=== PATIENT | male | born 2000 | race African-American/Black ===

== ENCOUNTER 2024-08-08 14:49 | Emergency (ER) | payer OTHER, SELFPAY ==
--- NOTE | ~2024-08-08 | XR_ITS ---
CLINICAL HISTORY: pain 3 views left fifth digit Comparison: None Findings: No dislocations. No significant arthritic change. No radiopaque foreign body. Impression: Soft tissue swelling and laceration with a 1 x 3 mm cortical avulsion of the volar cortex of the distal phalanx visualized in the lateral projection. This document has been electronically signed by: Syed Tomlin MD on 08/08/2024 17:04:02
[2024-08-08 14:53] VITALS: BP 148/71; PULSE 74; RESP 16; TEMP 36.6; O2SAT 99; BMI 33.3
--- NOTE | 2024-08-08 14:58 | ED.GENADULT ---
HPI - General Adult General Chief complaint: Extremity Injury, Upper Stated complaint: L Pinky Injury Time Seen by Provider: 08/08/24 18:04 Source: patient Limitations: no limitations History of Present Illness ED Provider: Cecilia Rizzo PA-C HPI narrative: 24-year-old male presents with left hand injury. While at work, patient dropped a piece of equipment on the left hand, injuring the pinky finger. Tetanus not up-to-date. Related Data Previous Rx's ?Medication ?Instructions ?Recorded cephalexin 500 mg capsule 500 mg PO QID #28 caps 08/08/24 oxycodone 5 mg tablet 5 mg PO Q8H PRN pain #9 tabs 08/08/24 Allergies Allergy/AdvReac Type Severity Reaction Status Date / Time No Known Allergies Allergy Verified 08/08/24 14:55 Review of Systems Review of Systems: Yes all other systems are reviewed and are negative Constitutional: Constitutional: Denies fatigue and Denies fever(s) Musculoskeletal: Musculoskeletal: Reports arthralgias and Reports joint swelling Endocrine: Endocrine: Denies fatigue PMFSH Past Medical History Attestation statement: The following information was validated with the patient. Social History Social History Advance Directives: No Advance Directives Information Provided: No Physical Exam ED Vital Signs: Vital Signs - 24 hr 08/08/24 14:53 08/08/24 15:53 08/08/24 19:39 Temperature 98 F 98.1 F 98 F Pulse Rate 74 76 78 Respiratory Rate 16 18 19 Blood Pressure 148/71 H 146/72 H 144/76 H Pulse Oximetry 99 99 99 Oxygen Delivery Method Room Air Room Air Room Air 08/08/24 20:14 Temperature 98 F Pulse Rate 78 Respiratory Rate 19 Blood Pressure 144/76 H Pulse Oximetry 99 Oxygen Delivery Method Room Air BMI result Body Mass Index 33.3 Const Other: Alert well-appearing Orientation/consciousness: patient oriented x3 Resp Effort & Inspection: normal respiratory effort Cardio Other: Normal peripheral perfusion Skin Other: Warm dry no rash Neuro General: patient oriented x3, gait normal, no focal motor deficits and CN's II-XI intact bilaterally Extrem Other: Crush injury noted to the tip of the left 5th digit, primarily involving the pad, nail intact, full range of motion at MCP, PIP and DIP, deep to subcu tissue, minimally bleeding, measures overall 3 cm Psych Other: Cooperative Course Course Course Narrative: RMRoma, this is a rapid medical exam performed by Jareth Azevedo please refer to primary provider for complete H&P- 24-year-old male presents for evaluation of a left 5th finger injury. He was at work when his left pinky finger was crushed. There is a small laceration to the tip of the left 5th finger. Plan for x-ray and closure Medications Administered Discontinued Medications Generic Name Dose Route Start Last Admin Trade Name Freq PRN Reason Stop Dose Admin Diphtheria/Tetanus/Acell Pertussis 0.5 ml 08/08/24 18:11 08/08/24 18:20 Diphth,Pertus(Acell),Tet Adult 0.5 Ml Syringe IM 08/08/24 18:12 0.5 ml .ONCE ONE Administration Cefazolin Sodium/Dextrose 2 gm in 50 mls @ 100 mls/hr 08/08/24 18:15 08/08/24 18:57 Ancef IV 08/08/24 18:44 Infused ONCE ONE Infusion Lidocaine/Epinephrine 10 ml 08/08/24 18:17 08/08/24 18:21 Lidocaine Hcl 1%/Epi 1:100,000 20 Ml Vial INFILTRATI 08/08/24 18:18 10 ml ONCE ONE Administration Procedures Laceration Laceration 1: Site: hand Side (If applicable): left Size (cm): 3 Description: irregular Depth: simple, single layer Local Anesthetic: lidocaine 1% and with epi Amount of anesthesia used (mL): 3 Pre-repair: wound explored and irrigated extensively Skin layer closed with: nylon Size (cm): 4-0 Number of sutures: 10 Technique: simple, interrupted Medical Decision Making Medical Decision Making MDM Narrative: 24-year-old male presents with left hand injury. While at work, patient dropped a piece of equipment on the left hand, injuring the pinky finger. Tetanus not up-to-date. No chronic issues History: Per patient I have considered the following differential diagnoses: Fracture, dislocation, laceration, contusion, crush injury, Plan: X-ray ordered from triage, the patient has an avulsion of the distal phalanx, he has an open fracture. We will update tetanus, give 2 g of Ancef, repair of the wound and send with antibiotics and contact for hand surgery. I have independently reviewed the following tests: X-ray left hand:Findings: No dislocations. No significant arthritic change. No radiopaque foreign body. Impression: Soft tissue swelling and laceration with a 1 x 3 mm cortical avulsion of the volar cortex of the distal phalanx visualized in the lateral projection. Discharge Plan Discharge Clinical Impression: Crushing injury of left little finger Patient Disposition: Home, Self-Care Instructions: Crush Injury (ED) Additional Instructions: Ten stitches were used to partially close the wound. Some of the tissue is absent, it could not be completely closed. You sustained a fracture to the bone in the tip of the finger. Keep the splint in place. Take the cephalexin as directed, this is an antibiotic to help prevent infection. Take the oxycodone as needed for pain, to note this medication can be constipating, purchased [id number] Colace, which is a stool softener, to prevent constipation. Do not drive or operate machinery while taking the oxycodone, while at work, you can use Tylenol 1000 mg taken every 8 hours. This can be purchased [id number] as well. I am providing you with a contact for our hand surgeon. Call tomorrow to make a follow up appointment. Prescriptions: New cephalexin 500 mg capsule 500 mg PO QID Qty: 28 0RF oxycodone 5 mg tablet 5 mg PO Q8H PRN (Reason: pain) Qty: 9 0RF Rx Instructions: Partial Fill upon patient request. Referrals: Eli Adams MD [Physician] - (left 5th digit crush injury/open fracture) Stand Alone Forms: Work/School Release Interventions: ED Discharge Assessment Last Done: 08/08/24 20:14 Discharge Date/Time: 08/08/24 20:15 Print Language: Ukrainian
[2024-08-08 15:53] VITALS: BP 146/72; PULSE 76; RESP 18; TEMP 36.7; O2SAT 99
--- NOTE | 2024-08-08 17:33 | PC.NURSE ---
left index finger avulsion. bleeding controlled. has limited ROM. good cap refill of distal tissue. awaits provider
[2024-08-08] MEDS: Diphth,Pertus(ACell),Tet Adult 0.5 ML SYRINGE IM (18:20)
[2024-08-08] MEDS: Lidocaine HCl 1%/Epi 1:100,000 20 ML VIAL 10 ML INFILTRATI (18:21)
[2024-08-08] MEDS: ceFAZolin Sodium/Dextrose,Iso 2 GM/50 ML PIGGYBACK IV (18:27)
[2024-08-08 19:39] VITALS: BP 144/76; PULSE 78; RESP 19; TEMP 36.6; O2SAT 99
[2024-08-08 20:14] VITALS: BP 144/76; PULSE 78; RESP 19; TEMP 36.6; O2SAT 99
== END 2024-08-08 20:15 | disposition home or self-care (01) ==
PROVIDERS: Emergency Provider Emergency Medicine
DX: S61.217A Laceration without foreign body of left little finger without damage to nail, initial encounter (principal); W20.8XXA Other cause of strike by thrown, projected or falling object, initial encounter; Y93.89 Activity, other specified; Y92.59 Other trade areas as the place of occurrence of the external cause; Y99.0 Civilian activity done for income or pay; Z23 Encounter for immunization
CPT/HCPCS: 12002; 73140; 90471; 90715; 96365; 99284; J0690; J2004

== ENCOUNTER → 2024-08-08 14:57 | Outpatient (BNV) | payer OTHER, SELFPAY | PROVIDERS: Visit Provider Radiology Diagnostic Radiology | DX: S60.943A Unspecified superficial injury of left middle finger, initial encounter (principal) | CPT/HCPCS: 73140 ==

== ENCOUNTER 2024-08-10 08:08 | Outpatient (REF) | payer OTHER, SELFPAY ==
--- NOTE | ~2024-08-10 | XR_ITS ---
EXAMINATION: XR HAND 3 OR MORE VIEWS LEFT HISTORY: M79.642 - Pain in left hand COMPARISON: Comparison is made with the prior examination dated 08/08/2024. FINDINGS: Four views of the left hand are submitted. Osseous mineralization is normal. Again seen is a linear osseous density adjacent to the volar aspect of the distal tuft of the 5th finger, compatible with an avulsion fracture. The joint spaces are preserved. There is mild soft tissue swelling of the 5th finger. XR/XR hand LT min 3V IMPRESSION: Avulsion fracture of the distal tuft of the 5th finger without change. Electronically signed by: Yaya Teixeira MD 08/10/2024 01:59 PM EDT
== END 2024-08-10 08:09 | disposition home or self-care (01) ==
LOC: HO.HOSX 08:08
DX: M79.642 Pain in left hand (principal); S67.197A Crushing injury of left little finger, initial encounter
CPT/HCPCS: 73130; 99202

== ENCOUNTER 2024-08-10 11:36 | Outpatient (AMB) | payer OTHER, SELFPAY ==
--- NOTE | 2024-08-10 11:45 | MHC.OFFVIS ---
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 Patient reports that while he was at work on 08/08/24 he dropped a plane part on the Left small finger. Patient was seen at [facility] ED the day of the injury, where he was given sutures and antibiotics. Currently he is having pain in the finger. Allergies No Known Allergies Allergy (Verified 08/08/24 14:55) HPI HPI MANAGER SUSTAINABILITY-left hand injury(pinky finger): Details: Rob is a 24 year old right hand dominant male who presents today for a Fracture Care visit of the Left Small Finger. Patient reports that while he was at work on 08/08/24 he dropped a plane part on the Left small finger. Patient was seen at [facility] ED the day of the injury, where he was given sutures and antibiotics. Currently he is having pain in the finger. Patient reports he has kept the laceration clean, dry, intact, and has not remove the dressing since placed in the ED. [facility] Social History (Updated 08/10/24 @ 11:51 by Darling Fuller [facility]) Current occupational status: employed Current occupation: [employer] Review of Systems Const All systems reviewed & are unremarkable except as noted in HPI and below Physical Exam Vital Signs: BMI result Body Mass Index 33.2 Extrem Other: Patient is alert, oriented, and in no acute distress. Neuro: Normal sensation of the tips of all digits of the left hand at this time Vascular: Cap refill brisk Pain: Tenderness to palpation about the distal phalanx of the left small finger ROM: Patient is able to make a closed fist, limited range of motion of the DIP joint of the left small finger Skin: Laceration noted on the volar aspect of the left 5th small finger that is sutures in place General: No ecchymosis, erythema, or evidence of infection. Psych: Appears grossly normal Affect normal Attitude cooperative Office Procedures AMB Fracture Care Fracture Billing Code: Fracture Billing Code Results Reviewed Results Reviewed: X-rays obtained in the office today and independently reviewed by me, Chuy Hebert PA-C, demonstrate minimally displaced small avulsion fracture of the distal phalanx of the left small finger. Assessment & Plan Assessment & Plan (1) Crushing injury of left little finger: Code(s): S67.197A - Crushing injury of left little finger, initial encounter Category: Medical Plan 1. Open fracture of distal phalanx of left small finger Date of injury 08/08/2024 Patient is educated about this condition Patient is educated about the typical recovery course Sutures are not remove that this time, we will need to be in for 10-14 days No splinting necessary for this fracture Patient educated that on Thursday, he can begin washing the incision site with soap and water in the sink of the shower, should keep dry before that Daily dressing changes Follow-up in 1 week for reassessment and wound check, sooner with any acute concerns Orders: Orders XR hand LT min 3V Today M79.642 - Pain in left hand Medications: New amoxicillin-pot clavulanate 875-125 mg 1 tab PO BID 20 tabs 0RF 10 days Discontinued cephalexin Discontinued Reason: Doctor's Order 500 mg PO QID 28 caps 0RF Coding Level of Care Code New Pt Level 3 (56714) Diagnoses Crushing injury of left little finger S67.197A CPT Codes Fracture Care - Fracture Billing Code: Fracture Billing Code ([id number])
[2024-08-10 11:46] VITALS: BMI 33.2
== END 2024-08-10 12:39 | disposition home or self-care (01) ==
DX: S62.667B Nondisplaced fracture of distal phalanx of left little finger, initial encounter for open fracture (principal); S67.197A Crushing injury of left little finger, initial encounter
CPT/HCPCS: 99204

== ENCOUNTER → 2024-08-10 11:38 | Outpatient (BNV) | payer OTHER, SELFPAY | PROVIDERS: Visit Provider Radiology Diagnostic Radiology | DX: S62.637A Displaced fracture of distal phalanx of left little finger, initial encounter for closed fracture (principal) | CPT/HCPCS: 73130 ==

== ENCOUNTER 2024-08-17 15:11 | Outpatient (AMB) | payer OTHER, SELFPAY ==
--- NOTE | 2024-08-17 15:17 | A.OFFVIS_ITS ---
Vital Signs 08/17/24 15:18 Height 6 ft Weight 240 lb BMI 32.5 Handedness Right Intake Visit Reasons: OV- L 5th finger crush injury/ fx WC DOI 08/08/24 Intake Note: Rob is a 24 year old right and dominant male who presents today for a follow up visit for his open fracture of distal phalanx of left small finger s/p work injury DOI: 08/08/2024. Patient reports random throbbing pain. Expresses numbness at the tip of the left small finger. Allergies No Known Allergies Allergy (Verified 08/17/24 15:18) HPI HPI OV- L 5th finger crush injury/ fx WC DOI 08/08/24: Details: Rob is a 24 year old right and dominant male who presents today for a follow up visit for his open fracture of distal phalanx of left small finger s/p work injury DOI: 08/08/2024. Patient reports random throbbing pain that is infrequent , but does bother him. Expresses numbness at the tip of the left small finger. [facility] Social History Alcohol intake: never Current occupational status: employed Current occupation: [employer] / right handed Review of Systems Const All systems reviewed & are unremarkable except as noted in HPI and below Physical Exam Vital Signs: BMI result Body Mass Index 32.5 Extrem Other: Patient is alert, oriented, and in no acute distress. Neuro: Normal sensation of the tips of all digits of the left hand at this time Vascular: Cap refill brisk Pain: Tenderness to palpation about the distal phalanx of the left small finger ROM: Patient is able to make a closed fist, limited range of motion of the DIP joint of the left small finger Skin: Laceration noted on the volar aspect of the left 5th small finger that is sutures in place General: No ecchymosis, erythema, or evidence of infection. Psych: Appears grossly normal Affect normal Attitude cooperative Assessment & Plan Assessment & Plan (1) Crushing injury of left little finger: Code(s): S67.197A - Crushing injury of left little finger, initial encounter Category: Medical Plan 1. Open fracture of distal phalanx of left small finger Date of injury 08/08/2024 Patient is educated about this condition Patient is educated about the typical recovery course Sutures are not remove that this time, we will need to be in for 10-14 days No splinting necessary for this fracture Patient educated that he can begin washing the incision site with soap and water in the sink of the shower, should keep dry before that Daily dressing changes Follow-up in 1 week for reassessment and wound check, anticipate suture removal at that time, sooner with any acute concerns Coding Level of Care Code Global (24841) Diagnoses Crushing injury of left little finger S67.197A
[2024-08-17 15:18] VITALS: BMI 32.5
== END 2024-08-17 15:48 | disposition home or self-care (01) ==
LOC: HO.HOS 15:12
DX: S67.197A Crushing injury of left little finger, initial encounter (principal)
CPT/HCPCS: 99213

== ENCOUNTER → 2024-08-17 15:11 | Outpatient (BNVA) | payer OTHER, SELFPAY | DX: S62.637B Displaced fracture of distal phalanx of left little finger, initial encounter for open fracture (principal); W31.9XXA Contact with unspecified machinery, initial encounter; Y93.89 Activity, other specified; Y92.69 Other specified industrial and construction area as the place of occurrence of the external cause; Y99.0 Civilian activity done for income or pay | CPT/HCPCS: 99212 ==

== ENCOUNTER 2024-08-24 15:16 | Outpatient (REF) | payer OTHER, SELFPAY ==
--- NOTE | ~2024-08-24 | XR_ITS ---
EXAMINATION: XR HAND 3 OR MORE VIEWS LEFT HISTORY: M79.642 - Pain in left hand COMPARISON: Comparison is made with the prior examination dated 08/02/2024. FINDINGS: Three views of the left hand are submitted. Osseous mineralization is normal. The previously seen a avulsion of the distal phalanx of the 5th finger is no longer identified. The joint spaces are preserved. The soft tissues are unremarkable. XR/XR hand LT min 3V IMPRESSION: The previously seen avulsion of the distal phalanx of the 5th finger is no longer identified. Electronically signed by: Yaya Teixeira MD 08/25/2024 07:26 AM EDT
== END 2024-08-24 15:17 | disposition home or self-care (01) ==
LOC: HO.HOSX 15:16
PROVIDERS: Visit Provider Orthopaedic Surgery
DX: M79.642 Pain in left hand (principal); S67.197A Crushing injury of left little finger, initial encounter
CPT/HCPCS: 73130; 99212

== ENCOUNTER 2024-08-24 15:16 | Outpatient (AMB) | payer OTHER, SELFPAY ==
[2024-08-24 15:39] VITALS: BMI 32.5
--- NOTE | 2024-08-24 15:39 | A.OFFVIS_ITS ---
Vital Signs 08/24/24 15:39 Height 6 ft Weight 240 lb BMI 32.5 Intake Visit Reasons: OV- L 5th finger crush injury/ fx WC DOI 08/08/24 Intake Note: Rob is a 24 year old right and dominant male who presents today for a follow up visit for wound check and suture removal for his open fracture of distal phalanx of left small finger s/p work injury DOI: 08/08/2024. States he returned to work with light duty restrictions. Allergies No Known Allergies Allergy (Verified 08/24/24 15:40) HPI HPI OV- L 5th finger crush injury/ fx WC DOI 08/08/24: Details: Rob is a 24 year old right hand dominant man who returns for his left small finger open distal phalanx fracture, from a work injury, DOI: 08/08/24. This was sutured in the ED same day. He says he is doing well overall. He continues to have some pain in his small finger occasionally. He works assembling plane parts. He has returned to work on light duty, which he says has been going well. [facility] Social History Alcohol intake: never Current occupational status: employed Current occupation: [employer] / right handed Review of Systems Const All systems reviewed & are unremarkable except as noted in HPI and below Physical Exam Vital Signs: BMI result Body Mass Index 32.5 Const General: cooperative, healthy appearing and no acute distress Orientation/consciousness: patient oriented x3 HEENT Head: Yes normocephalic and Yes atraumatic Eyes EOM: EOMs intact bilaterally Resp Effort & Inspection: normal respiratory effort and able to speak in complete sentences Cardio Jugular venous distension: no JVD Skin General skin exam: turgor normal Rashes: no rashes Neuro General: patient oriented x3 Extrem Other: Evaluation of Left Upper Extremity: The patient is alert, oriented, and in no acute distress Neuro: Median, Ulnar, Radial nerves motor and sensory intact and sensation is normal to the tips of all digits Vascular: Cap refill brisk ROM: He can make a fist and extend all his digits Skin: Complex wound over pad of small finger Soft, healing well, minimally tender. Dried blood around the laceration. Sutures removed and Steri-strips applied. General: No Ecchymosis. No Erythema or evidence of infection. Radiographs: 3 views of the left hand from 08/10/24 were reviewed by me today in clinic. They show a minimally displaced small avulsion fracture of the distal phalanx of the left small finger. Psych Appearance: grossly normal Affect: normal affect Attitude: cooperative Assessment & Plan Assessment & Plan (1) Crushing injury of left little finger: Code(s): S67.197A - Crushing injury of left little finger, initial encounter Category: Medical Plan Assessment & Plan: 1. Left small finger distal phalanx fracture, open DOI: 08/08/24 This is a work-related injury I educated him about this condition I discussed operative and non-operative treatment options We will continue to manage this non-operatively I explained the signs and symptoms of infection, if the patient develops any new or worsening erythema, drainage, pain, or warmth they should contact the clinic or attend the ED. I discussed activity modifications, he is to lift nothing heavier than a cellphone for the next 2 weeks He will perform gentle ROM exercises at home He should avoid any underwater activities for the next 5 days He should gently massage about the incision site to reduce the risk of hypersensitivity He works assembling place parts. He has been working light duty with a 2lb weight limit. He was given a note to continue on light duty with a 2lb weight limit for the next 2 weeks. Keep finger clean & dry He will follow up in 2 weeks with NIYA Vera, for a wound check Scribed for Eli Adams MD by Taiwo Kraft, phlebotomist medical lab assistant, on 08/24/24 at 3:55 PM, EST. Orders: Orders XR hand LT min 3V 08/24/24 M79.642 - Pain in left hand Coding Level of Care Code Global (16882) Diagnoses Crushing injury of left little finger S67.197A
== END 2024-08-24 16:00 | disposition home or self-care (01) ==
LOC: HO.HOS 15:17
PROVIDERS: Visit Provider Orthopaedic Surgery
DX: S67.197A Crushing injury of left little finger, initial encounter (principal)
CPT/HCPCS: 99213

== ENCOUNTER → 2024-08-24 15:32 | Outpatient (BNV) | payer OTHER, SELFPAY | PROVIDERS: Visit Provider Radiology Diagnostic Radiology | DX: S67.22XD Crushing injury of left hand, subsequent encounter (principal) | CPT/HCPCS: 73130 ==

== ENCOUNTER 2024-08-25 08:56 | Outpatient (REF) | payer OTHER, SELFPAY | END 2024-08-25 08:57 | disposition home or self-care (01) | LOC: HO.HOSX 08:56 | PROVIDERS: Visit Provider Orthopaedic Surgery | DX: Z13.89 Encounter for screening for other disorder (principal) ==

== ENCOUNTER 2024-09-06 08:42 | Outpatient (REF) | payer OTHER, SELFPAY ==
--- NOTE | ~2024-09-06 | XR_ITS ---
CLINICAL HISTORY: M79.642 - Pain in left hand --- Additional Notes or Special Instructions: Attn SF Radiographs of the lefthand, 3 views Comparison: DX/SR - XR HAND LT MIN 3V - 08/24/24 15:32 EDT DX/IA/SR - XR HAND LT MIN 3V - 08/10/24 11:38 EDT CR - XR FINGER LT MIN 2V - 08/08/24 15:05 EDT Findings: 3 mm ossific fragment of the volar aspect of the 5th distal phalanx seen on the lateral view with subtle osseous bridging. No dislocation. The joint spaces are preserved without osteophytosis. Bone mineralization is normal. Soft tissue swelling. Interval healing of the previously seen laceration. Impression: Healing fracture of the 5th distal phalanx. This document has been electronically signed by: Liza Jones MD on 09/07/2024 14:47:53
== END 2024-09-06 08:43 | disposition home or self-care (01) ==
LOC: HO.HOSX 08:42
DX: M79.642 Pain in left hand (principal); R20.2 Paresthesia of skin; S67.197A Crushing injury of left little finger, initial encounter
CPT/HCPCS: 73130; 99212

== ENCOUNTER 2024-09-06 11:31 | Outpatient (AMB) | payer OTHER, SELFPAY ==
--- NOTE | 2024-09-06 11:36 | MHC.OFFVIS ---
Vital Signs 09/06/24 11:37 Height 6 ft Weight 240 lb BMI 32.5 Intake Visit Reasons: OV: Left 5th digit FX DOI 08/08/24 Intake Note: Rob is a 24 year old right and dominant male who presents today for a follow up visit and wound check for his open fracture of distal phalanx of left small finger s/p work injury DOI: 08/08/2024. Paitent repoerts he is dong well, he has discomfort with applying pressure. He has numbness at the tip of his finger. Allergies No Known Allergies Allergy (Verified 09/06/24 11:37) HPI HPI OV: Left 5th digit FX DOI 08/08/24: Details: Rob is a 24 year old right and dominant male who presents today for a follow up visit and wound check for his open fracture of distal phalanx of left small finger s/p work injury DOI: 08/08/2024. Paitent repoerts he is dong well, he has discomfort with applying pressure. He has numbness at the tip of his finger. [facility] Social History Alcohol intake: never Current occupational status: employed Current occupation: [employer] / right handed Review of Systems Const All systems reviewed & are unremarkable except as noted in HPI and below Physical Exam Vital Signs: BMI result Body Mass Index 32.5 Const General: cooperative, healthy appearing and no acute distress Orientation/consciousness: patient oriented x3 HEENT Head: Yes normocephalic and Yes atraumatic Eyes EOM: EOMs intact bilaterally Resp Effort & Inspection: normal respiratory effort and able to speak in complete sentences Cardio Jugular venous distension: no JVD Skin General skin exam: turgor normal Rashes: no rashes Neuro General: patient oriented x3 Extrem Other: Evaluation of Left Upper Extremity: The patient is alert, oriented, and in no acute distress Neuro: Median, Ulnar, Radial nerves motor and sensory intact and sensation is normal to the tips of all digits Vascular: Cap refill brisk ROM: He can make a fist and extend all his digits Skin: Complex wound over pad of small finger appears well healed Soft, healing well, not tender. Small scab noted in the most distal aspect of laceration. Sutures removed and Steri-strips applied. General: No Ecchymosis. No Erythema or evidence of infection. Psych Appearance: grossly normal Affect: normal affect Attitude: cooperative Results Reviewed Results Reviewed: X-rays obtained in the office today and independently reviewed by me, Chuy Hebert PA-C, demonstrate minimally displaced small avulsion fracture of the distal phalanx of the left small finger. Assessment & Plan Assessment & Plan (1) Crushing injury of left little finger: Code(s): S67.197A - Crushing injury of left little finger, initial encounter Category: Medical Plan Assessment & Plan: 1. Left small finger distal phalanx fracture, open DOI: 08/08/24 This is a work-related injury I educated him about this condition I discussed operative and non-operative treatment options We will continue to manage this non-operatively I explained the signs and symptoms of infection, if the patient develops any new or worsening erythema, drainage, pain, or warmth they should contact the clinic or attend the ED. 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 He was given a note to continue on light duty with a 2lb weight limit for the next 2 weeks. Keep finger clean & dry Orders: Orders XR hand LT min 3V Today M79.642 - Pain in left hand Coding Level of Care Code Global (92495) Diagnoses Crushing injury of left little finger S67.197A
[2024-09-06 11:37] VITALS: BMI 32.5
== END 2024-09-06 11:49 | disposition home or self-care (01) ==
LOC: HO.HOS 11:31
DX: S67.197A Crushing injury of left little finger, initial encounter (principal)
CPT/HCPCS: 99213

== ENCOUNTER → 2024-09-06 11:33 | Outpatient (BNV) | payer OTHER, SELFPAY | PROVIDERS: Visit Provider Radiology Diagnostic Radiology | DX: S62.636D Displaced fracture of distal phalanx of right little finger, subsequent encounter for fracture with routine healing (principal) | CPT/HCPCS: 73130 ==